=== PATIENT | female | born 1990 | race Asian ===

== ENCOUNTER 2016-11-25 06:35 | Inpatient (IN) | payer MEDICAID ==
[2016-11-25] MEDS ORDERED: Sodium Chloride 0.9% 10 ML Syringe FLUSH PRN (07:27)
[2016-11-25] MEDS ORDERED: Nalbuphine 20 MG/1 ML Amp IVPUSH PRN (07:27)
[2016-11-25] MEDS ORDERED: Lidocaine 1% 50 ML MDV INJECT ONE (07:27)
[2016-11-25] MEDS ORDERED: Ondansetron 4 MG/2 ML SDV IVPUSH PRN (07:27)
[2016-11-25] MEDS ORDERED: Oxytocin/Lactated Ringers 10 UNIT/1,000 ML BAG IV SCH (07:30)
[2016-11-25] MEDS ORDERED: Lactated Ringers 1,000 ML IV SCH (07:30)
--- NOTE | 2016-11-25 07:58 | PCM.LDHP ---
L&D History of Present Illness - General Date of Service: 11/25/16 Admit Problem/Dx: Patient Status Order with Admit Dx/Problem 11/25/16 07:28 Patient Status [ADT] Routine Admission Diagnosis/Problem Admission Diagnosis/Problem Normal labor Source of Information: Patient History Limitations: Reports: No limitations - History of Present Illness Introduction:: 26 y/o BUBBA 12/06/2016 EGA 38w3d presented to L&D in labor with bloody show. No H/O placenta previa by ultrasound. Ultrasound requested to make sure no abruptio. GBS negative. H/O hypothyroidism Taking levothyroxine 88 mcg daily. Plan labor and delivery Improves with: Reports: None Worsens with: Reports: None Associated Symptoms: Reports: N - Related Data Allergies/Adverse Reactions: Allergies Allergy/AdvReac Type Severity Reaction Status Date / Time No Known Allergies Allergy Verified 11/25/16 07:56 Past Medical History : 5 Para: 2 (2021) LMP (Approximate): H&P Review of Systems - Review of Systems: Review Of Systems: See Below General: Reports: no symptoms HEENT: Reports: no symptoms Pulmonary: Reports: No Symptoms Cardiovascular: Reports: no symptoms Gastrointestinal: Reports: No symptoms Genitourinary: Reports: no symptoms Musculoskeletal: Reports: no symptoms Skin: Reports: no symptoms Psychiatric: Reports: no symptoms Neurological: Reports: No Symptoms Hematologic/Lymphatic: Reports: no symptoms Immunologic: Reports: no symptoms L&D Exam - Exam Exam: See Below - OB Specific Fundal Height in cm: 36 Contraction Duration (sec): 60 Contraction Frequency (min): 3 Contraction Intensity: Moderate movement: active heart tones: present heart tones per min: 135 Heart Rate (FHR) Variability: Moderate (6-25 bmp) Presentation: Vertex Estimated Weight: 6.5 - Alcaraz Score Alcaraz Score Cervix Position: Posterior Alcaraz Score Consistency: Soft Alcaraz Score Effacement: >80% Alcaraz Score Dilation: 3-4 cm Alcaraz Score 's Station: -1 ,0 Alcaraz Score Total: 9 - Exam General: alert, oriented HEENT: Mucosa moist & pink Neck: supple, trachea midline Lungs: Clear to auscultation, Normal respiratory effort Cardiovascular: regular rate, regular rhythm Abdomen: normal bowel sounds, soft Genitourinary: Normal external exam Extremities: normal inspection Skin: warm, dry, intact Psychiatric: alert, normal affect, normal mood - Patient Data Lab Results last 24 hrs: Laboratory Results - last 24 hr 11/25/16 Range/Units 07:25 WBC 12.21 H (3.98-10.04) K/mm3 RBC 3.94 L (3.98-5.22) M/mm3 Hgb 12.6 (11.2-15.7) gm/L Hct 37.7 (34.1-44.9) % MCV 95.7 H (79.4-94.8) fl MCH 32.0 (25.6-32.2) pg MCHC 33.4 (32.2-35.5) g/dl RDW Std Deviation 44.7 (36.4-46.3) fL Plt Count 154 L (182-369) K/mm3 MPV 10.9 (9.4-12.3) fl Result Diagrams: 11/25/16 07:25 - Problem List (1) 38 weeks gestation of SNOMED Code(s): 48193539 ICD Code: Z3A.38 - 38 WEEKS GESTATION OF Status: Acute Current Visit: Yes Problem List Initiated/Reviewed/Updated: No Orders Last 24hrs: Active Orders 24 hr Category Date Time Status Patient Status [ADT] Routine ADT 11/25/16 07:28 Active Activity as Tolerated [RC] PFP Care 11/25/16 07:28 Active Communication Order [RC] ASDIRECTED Care 11/25/16 07:28 Active Heart Tones [RC] ASDIRECTED Care 11/25/16 07:28 Active Notify Provider [RC] PFP Care 11/25/16 07:28 Active Notify Provider [RC] PRN Care 11/25/16 07:28 Active Peripheral IV Care [RC] . DIRECTED Care 11/25/16 07:28 Active Vital Signs [RC] PER UNIT ROUTINE Care 11/25/16 07:28 Active Clear Liquid Diet [DIET] Diet 11/25/16 Breakfast Active OB Ltd 1 or More Fetus [US] Routine Exams 11/25/16 06:59 Ordered TYPE AND SCREEN [BBK] Stat Lab 11/25/16 07:25 Received Lactated Ringers [Ringers, Lactated] 1,000 ml Med 11/25/16 07:30 Ordered IV ASDIRECTED Lidocaine 1% [Xylocaine 1%] Med 11/25/16 07:27 Once 20 ml INJECT ONETIME ONE Nalbuphine [Nubain] Med 11/25/16 07:27 Ordered 10 mg IVPUSH Q2H PRN Ondansetron [Zofran] Med 11/25/16 07:27 Ordered 4 mg IVPUSH Q4H PRN Oxytocin/Lactated Ringers [Pitocin in LR 10 Units/1,000 Med 11/25/16 07:30 Ordered ML] 10 unit in 1,000 ml IV ASDIRECTED Sodium Chloride 0.9% [Saline Flush] Med 11/25/16 07:27 Ordered 10 ml FLUSH ASDIRECTED PRN Electronic Heart Tones Ext w TOCO [WOMSER] Ot 11/25/16 07:28 Ordered Routine Electronic Heart Tones Internal [WOMSER] Per Unit Ot 11/25/16 07:28 Ordered Routine Peripheral IV Insertion Adult [OM.PC] Routine Oth 11/25/16 07:28 Ordered Resuscitation Status Routine Resus Stat 11/25/16 07:27 Ordered Medication Orders Lactated Ringer's (Ringers, Lactated) 1,000 mls @ 100 mls/hr IV ASDIRECTED PADMINI Oxytocin/Lactated Ringer's (Pitocin In Lr 10 Units/1,000 Ml) 10 unit in 1,000 mls @ 500 mls/hr IV ASDIRECTED PADMINI Lidocaine HCl (Xylocaine 1%) 20 ml INJECT ONETIME ONE Stop: 11/25/16 07:28 Nalbuphine HCl (Nubain) 10 mg IVPUSH Q2H PRN PRN Reason: Pain (moderate 4-6) Ondansetron HCl (Zofran) 4 mg IVPUSH Q4H PRN PRN Reason: Nausea/Vomiting Sodium Chloride (Saline Flush) 10 ml FLUSH ASDIRECTED PRN PRN Reason: Keep Vein Open Assessment/Plan Comment:: Plan Labor and delivery
--- NOTE | 2016-11-25 08:48 | US ---
Limited obstetrical ultrasound: Multiple real-time images were obtained transabdominally. Comparison: Previous study of 07/18/16 is available. Dates: LMP: ? Current ultrasound: BUBBA 12/09/16, gestational age 38 weeks 0 days Earlier ultrasound (07/18/16): BUBBA 12/08/16, gestational age 38 weeks 1 day presentation: Cephalic Placenta: Anterior with no findings of placenta previa. No abruption is identified. Amniotic fluid: BOOGIE 10.71 cm Measurements: BPD: 9.57 cm - 39 weeks 1 day Head circumference: 34.00 cm - 39 weeks 1 day Abdominal circumference: 33.07 cm - 37 weeks 0 days Femur length: 7.13 cm - 36 weeks 4 days Estimated weight: 3183 g (7 lbs. 0 oz.), estimated weight at the 45th percentile for age by current ultrasound Heart rate: 151 BPM Growth curves: Various growth parameters are around the mean percentile. Growth is appropriate from previous exam. Impression: 1. Single intrauterine fetus currently cephalic in presentation. Dates as noted above. 2. No findings of placenta previa or abruption. 3. No etiology is seen to explain the patient's bleeding. Diagnostic code #1
--- NOTE | 2016-11-25 08:52 | PCM.SN ---
- Free Text/Narrative Note: Cervix 7 cm, 100%, midposition, soft, [id number] Cat I FHR amniotomy performed 0850 clear fluid with increased bloody show. USG did not reveal any abruption.
--- NOTE | 2016-11-25 09:43 | PCM.DEL ---
L & D Note - General Info Date of Service: 11/25/16 Mother's Due Date: 11/21/16 - Delivery Note Labor: spontaneous, augmented by ARM Delivery Outcome: Livebirth [facility] [address]/25[facility]16 [place] nuchal cord x1 tight ) Delivery Method: Spontaneous Vaginal Delivery (927) Presentation: Right Occiput Anterior ([place]) Nuchal cord: present (x1 tight) Prep: povidone-iodine (betadine Anesthesia Type: None Episiotomy Type: None Laceration: none Placenta: intact (marginal sinus abruption 10% with about 400 ml clot), spontaneous Cord: 3 vessels Estimated blood loss: 500 Resuscitation needed: No [place]: suctioned, bulb syringe, stimulated, warmed, blanket used, warmer used Provider: Ovi Matos Score 1 min: 9 Score 5 min: 9 - Patient Data Vitals - most recent: Last Vital Signs Temp 98.5 F 11/25/16 07:45 Pulse 68 11/25/16 07:45 Resp 18 11/25/16 07:45 BP 107/69 11/25/16 07:45 Pulse Ox 100 11/25/16 07:45 Weight - most recent: 156 lb Lab Results last 24 hrs: Laboratory Results - last 24 hr 11/25/16 11/25/16 Range/Units 07:25 07:25 WBC 12.21 H (3.98-10.04) K/mm3 RBC 3.94 L (3.98-5.22) M/mm3 Hgb 12.6 (11.2-15.7) gm/L Hct 37.7 (34.1-44.9) % MCV 95.7 H (79.4-94.8) fl MCH 32.0 (25.6-32.2) pg MCHC 33.4 (32.2-35.5) g/dl RDW Std Deviation 44.7 (36.4-46.3) fL Plt Count 154 L (182-369) K/mm3 MPV 10.9 (9.4-12.3) fl Blood Type A POSITIVE Gel Antibody Screen Negative Med Orders - Current: Current Medications Lactated Ringer's (Ringers, Lactated) 1,000 mls @ 100 mls/hr IV ASDIRECTED PADMINI Oxytocin/Lactated Ringer's (Pitocin In Lr 10 Units/1,000 Ml) 10 unit in 1,000 mls @ 500 mls/hr IV ASDIRECTED PADMINI Nalbuphine HCl (Nubain) 10 mg IVPUSH Q2H PRN PRN Reason: Pain (moderate 4-6) Ondansetron HCl (Zofran) 4 mg IVPUSH Q4H PRN PRN Reason: Nausea/Vomiting Sodium Chloride (Saline Flush) 10 ml FLUSH ASDIRECTED PRN PRN Reason: Keep Vein Open Discontinued Medications Lidocaine HCl (Xylocaine 1%) 20 ml INJECT ONETIME ONE Stop: 11/25/16 07:28 - Problem List & Annotations (1) 38 weeks gestation of SNOMED Code(s): 65748563 Code(s): Z3A.38 - 38 WEEKS GESTATION OF Status: Acute Current Visit: Yes (2) Nuchal cord SNOMED Code(s): 398224773 Code(s): O69.82X0 - LABOR AND DEL COMP BY OTH CORD ENTANGLE, W/O COMPRSN, UNSP Status: Acute Current Visit: Yes Qualifiers: Fetus number: single or unspecified fetus Qualified Code(s): O69.82X0 - Labor and delivery complicated by other cord entanglement, without compression, not applicable or unspecified (3) Placenta abruption, delivered, current hospitalization SNOMED Code(s): 127980389, 606362884 Code(s): O45.90 - PREMATURE SEPARATION OF PLACENTA, UNSP, UNSP TRIMESTER Status: Acute Current Visit: Yes - Problem List Review Problem List Initiated/Reviewed/Updated: No - My Orders Last 24 Hours: My Active Orders 11/25/16 07:27 Nalbuphine [Nubain] 10 mg IVPUSH Q2H PRN Ondansetron [Zofran] 4 mg IVPUSH Q4H PRN Sodium Chloride 0.9% [Saline Flush] 10 ml FLUSH ASDIRECTED PRN Resuscitation Status Routine 11/25/16 07:28 Patient Status [ADT] Routine Activity as Tolerated [RC] PFP Communication Order [RC] ASDIRECTED Notify Provider [RC] PFP Notify Provider [RC] PRN Peripheral IV Care [RC] . DIRECTED Vital Signs [RC] PER UNIT ROUTINE Electronic Heart Tones Ext w TOCO [WOMSER] Routine Electronic Heart Tones Internal [WOMSER] Per Unit Routine Peripheral IV Insertion Adult [OM.PC] Routine 11/25/16 07:30 Lactated Ringers [Ringers, Lactated] 1,000 ml IV ASDIRECTED Oxytocin/Lactated Ringers [Pitocin in LR 10 Units/1,000 ML] 10 unit in 1,000 ml IV ASDIRECTED 11/25/16 Breakfast Clear Liquid Diet [DIET] - Plan Plan:: Plan Labor and delivery
[2016-11-25] MEDS ORDERED: Acetaminophen 325 MG Tab PO PRN (10:08)
[2016-11-25] MEDS ORDERED: Ibuprofen 600 MG Tab PO PRN (10:08)
[2016-11-25] MEDS ORDERED: Simethicone 80 MG Tab.Chew PO PRN (10:08)
[2016-11-25] MEDS ORDERED: Docusate Sodium 100 MG Cap PO PRN (10:08)
[2016-11-26] MEDS: Levothyroxine 88 MCG Tab PO SCH (06:17)
--- NOTE | 2016-11-26 10:02 | PCM.SN ---
- Free Text/Narrative Note: PPD#1 Afebrile, no heavy vaginal bleeding, no leg cramps, uterus involuting normally.
[2016-11-26] MEDS: Ferrous Sulfate 325 MG Tab PO SCH (13:09)
[2016-11-26] MEDS: Prenatal Multivitamin with Calcium/Folic Acid/Iron Tab PO SCH (13:09)
--- NOTE | 2016-11-27 08:14 | PCM.DCSUM1 ---
Discharge Summary - Hospital Course Free Text/Narrative:: [facility] LIVE L/D Delivery Note Patient Name: FARAZ PALENCIA Date of : 86 Patient Status: Inpatient Attending Provider: Ovi Matos Date: 11/25/16 09:35 Initialization Date: 11/25/16 09:35 L & D Note - General Info Date of Service: 11/25/16 Mother's Due Date: 11/21/16 - Delivery Note Labor: spontaneous, augmented by ARM Delivery Outcome: Livebirth (92611/25/16 [place] nuchal cord x1 tight ) Delivery Method: Spontaneous Vaginal Delivery (927) Presentation: Right Occiput Anterior ([place]) Nuchal cord: present (x1 tight) Prep: povidone-iodine (betadine Anesthesia Type: None Episiotomy Type: None Laceration: none Placenta: intact (marginal sinus abruption 10% with about 400 ml clot), spontaneous Cord: 3 vessels Estimated blood loss: 500 Resuscitation needed: No [place]: suctioned, bulb syringe, stimulated, warmed, blanket used, warmer used Provider: Ovi Matos Score 1 min: 9 Score 5 min: 9 - Patient Data Vitals - most recent: Last Vital Signs Temp 98.5 F 11/25/16 07:45 Pulse 68 11/25/16 07:45 Resp 18 11/25/16 07:45 BP 107/69 11/25/16 07:45 Pulse Ox 100 11/25/16 07:45 Weight - most recent: 156 lb Lab Results last 24 hrs: Laboratory Results - last 24 hr 11/25/16 11/25/16 Range/Units 07:25 07:25 WBC 12.21 H (3.98-10.04) K/mm3 RBC 3.94 L (3.98-5.22) M/mm3 Hgb 12.6 (11.2-15.7) gm/L Hct 37.7 (34.1-44.9) % MCV 95.7 H (79.4-94.8) fl MCH 32.0 (25.6-32.2) pg MCHC 33.4 (32.2-35.5) g/dl RDW Std Deviation 44.7 (36.4-46.3) fL Plt Count 154 L (182-369) K/mm3 MPV 10.9 (9.4-12.3) fl Blood Type A POSITIVE Gel Antibody Screen Negative Med Orders - Current: Current Medications Lactated Ringer's (Ringers, Lactated) 1,000 mls @ 100 mls/hr IV ASDIRECTED PADMINI Oxytocin/Lactated Ringer's (Pitocin In Lr 10 Units/1,000 Ml) 10 unit in 1,000 mls @ 500 mls/hr IV ASDIRECTED PADMINI Nalbuphine HCl (Nubain) 10 mg IVPUSH Q2H PRN PRN Reason: Pain (moderate 4-6) Ondansetron HCl (Zofran) 4 mg IVPUSH Q4H PRN PRN Reason: Nausea/Vomiting Sodium Chloride (Saline Flush) 10 ml FLUSH ASDIRECTED PRN PRN Reason: Keep Vein Open Discontinued Medications Lidocaine HCl (Xylocaine 1%) 20 ml INJECT ONETIME ONE Stop: 11/25/16 07:28 - Problem List & Annotations (1) 38 weeks gestation of SNOMED Code(s): 29299870 Code(s): Z3A.38 - 38 WEEKS GESTATION OF Status: Acute Current Visit: Yes (2) Nuchal cord SNOMED Code(s): 494864259 Code(s): O69.82X0 - LABOR AND DEL COMP BY OTH CORD ENTANGLE, W/O COMPRSN, UNSP Status: Acute Current Visit: Yes Qualifiers: Fetus number: single or unspecified fetus Qualified Code(s): O69.82X0 - Labor and delivery complicated by other cord entanglement, without compression, not applicable or unspecified (3) Placenta abruption, delivered, current hospitalization SNOMED Code(s): 770879215, 255028734 Code(s): O45.90 - PREMATURE SEPARATION OF PLACENTA, UNSP, UNSP TRIMESTER Status: Acute Current Visit: Yes - Problem List Review Problem List Initiated/Reviewed/Updated: No - My Orders Last 24 Hours: My Active Orders 11/25/16 07:27 Nalbuphine [Nubain] 10 mg IVPUSH Q2H PRN Ondansetron [Zofran] 4 mg IVPUSH Q4H PRN Sodium Chloride 0.9% [Saline Flush] 10 ml FLUSH ASDIRECTED PRN Resuscitation Status Routine 11/25/16 07:28 Patient Status [ADT] Routine Activity as Tolerated [RC] PFP Communication Order [RC] ASDIRECTED Notify Provider [RC] PFP Notify Provider [RC] PRN Peripheral IV Care [RC] . DIRECTED Vital Signs [RC] PER UNIT ROUTINE Electronic Heart Tones Ext w TOCO [WOMSER] Routine Electronic Heart Tones Internal [WOMSER] Per Unit Routine Peripheral IV Insertion Adult [OM.PC] Routine 11/25/16 07:30 Lactated Ringers [Ringers, Lactated] 1,000 ml IV ASDIRECTED Oxytocin/Lactated Ringers [Pitocin in LR 10 Units/1,000 ML] 10 unit in 1,000 ml IV ASDIRECTED 11/25/16 Breakfast Clear Liquid Diet [DIET] - Plan Plan:: Plan Labor and delivery HPI Initial Comments: [facility] LIVE L/D Delivery Note Patient Name: FARAZ PALENCIA Date of : 86 Patient Status: Inpatient Attending Provider: Ovi Matos Date: 11/25/16 09:35 Initialization Date: 11/25/16 09:35 L & D Note - General Info Date of Service: 11/25/16 Mother's Due Date: 11/21/16 - Delivery Note Labor: spontaneous, augmented by ARM Delivery Outcome: Livebirth ([facility] [address]11/25/16 [place] nuchal cord x1 tight ) Infant Delivery Method: Spontaneous Vaginal Delivery (927) Presentation: Right Occiput Anterior ([place]) Nuchal cord: present (x1 tight) Prep: povidone-iodine (betadine Anesthesia Type: None Episiotomy Type: None Laceration: none Placenta: intact (marginal sinus abruption 10% with about 400 ml clot), spontaneous Cord: 3 vessels Estimated blood loss: 500 Resuscitation needed: No [place]: suctioned, bulb syringe, stimulated, warmed, blanket used, warmer used Provider: Ovi Matos Score 1 min: 9 Score 5 min: 9 - Patient Data Vitals - most recent: Last Vital Signs Temp 98.5 F 11/25/16 07:45 Pulse 68 11/25/16 07:45 Resp 18 11/25/16 07:45 BP 107/69 11/25/16 07:45 Pulse Ox 100 11/25/16 07:45 Weight - most recent: 156 lb Lab Results last 24 hrs: Laboratory Results - last 24 hr 11/25/16 11/25/16 Range/Units 07:25 07:25 WBC 12.21 H (3.98-10.04) K/mm3 RBC 3.94 L (3.98-5.22) M/mm3 Hgb 12.6 (11.2-15.7) gm/L Hct 37.7 (34.1-44.9) % MCV 95.7 H (79.4-94.8) fl MCH 32.0 (25.6-32.2) pg MCHC 33.4 (32.2-35.5) g/dl RDW Std Deviation 44.7 (36.4-46.3) fL Plt Count 154 L (182-369) K/mm3 MPV 10.9 (9.4-12.3) fl Blood Type A POSITIVE Gel Antibody Screen Negative Med Orders - Current: Current Medications Lactated Ringer's (Ringers, Lactated) 1,000 mls @ 100 mls/hr IV ASDIRECTED PADMINI Oxytocin/Lactated Ringer's (Pitocin In Lr 10 Units/1,000 Ml) 10 unit in 1,000 mls @ 500 mls/hr IV ASDIRECTED PADMINI Nalbuphine HCl (Nubain) 10 mg IVPUSH Q2H PRN PRN Reason: Pain (moderate 4-6) Ondansetron HCl (Zofran) 4 mg IVPUSH Q4H PRN PRN Reason: Nausea/Vomiting Sodium Chloride (Saline Flush) 10 ml FLUSH ASDIRECTED PRN PRN Reason: Keep Vein Open Discontinued Medications Lidocaine HCl (Xylocaine 1%) 20 ml INJECT ONETIME ONE Stop: 11/25/16 07:28 - Problem List & Annotations (1) 38 weeks gestation of SNOMED Code(s): 11775025 Code(s): Z3A.38 - 38 WEEKS GESTATION OF Status: Acute Current Visit: Yes (2) Nuchal cord SNOMED Code(s): 169760666 Code(s): O69.82X0 - LABOR AND DEL COMP BY OTH CORD ENTANGLE, W/O COMPRSN, UNSP Status: Acute Current Visit: Yes Qualifiers: Fetus number: single or unspecified fetus Qualified Code(s): O69.82X0 - Labor and delivery complicated by other cord entanglement, without compression, not applicable or unspecified (3) Placenta abruption, delivered, current hospitalization SNOMED Code(s): 166904553, 420035577 Code(s): O45.90 - PREMATURE SEPARATION OF PL[place]ENTA, UNSP, UNSP TRIMESTER Status: Acute Current Visit: Yes - Problem List Review Problem List Initiated/Reviewed/Updated: No - My Orders Last 24 Hours: My Active Orders 11/25/16 07:27 Nalbuphine [Nubain] 10 mg IVPUSH Q2H PRN Ondansetron [Zofran] 4 mg IVPUSH Q4H PRN Sodium Chloride 0.9% [Saline Flush] 10 ml FLUSH ASDIRECTED PRN Resuscitation Status Routine 11/25/16 07:28 Patient Status [ADT] Routine Activity as Tolerated [RC] PFP Communication Order [RC] ASDIRECTED Notify Provider [RC] PFP Notify Provider [RC] PRN Peripheral IV Care [RC] . DIRECTED Vital Signs [RC] PER UNIT ROUTINE Electronic Heart Tones Ext w TOCO [WOMSER] Routine Electronic Heart Tones Internal [WOMSER] Per Unit Routine Peripheral IV Insertion Adult [OM.PC] Routine 11/25/16 07:30 Lactated Ringers [Ringers, Lactated] 1,000 ml IV ASDIRECTED Oxytocin/Lactated Ringers [Pitocin in LR 10 Units/1,000 ML] 10 unit in 1,000 ml IV ASDIRECTED 11/25/16 Breakfast Clear Liquid Diet [DIET] - Plan Plan:: Plan Labor and delivery Brief History: [facility] LIVE . L/D Delivery Note. [facility]: [id number]. Date of : 86Patient Status: Inpatient. Attending Provider: Ovi Matos Number: [id number]. Date: 11/25/16 09:35Initialization Date: 11/25/16 09:35. L & D Note. - General Info. Date of Service: 11/25/16. Mother's Due Date: . - Delivery Note. Labor: spontaneous, augmented by ARM. Delivery Outcome: Livebirth ([facility] [address]11/25/16 [place] nuchal cord x1 tight). Infant Delivery Method: Spontaneous Vaginal Delivery (927). Presentation: Right Occiput Anterior ([place]). Nuchal cord: present (x1 tight). Prep: povidone- iodine (betadine. Anesthesia Type: None. Episiotomy Type: None. Laceration: none. Placenta: intact (marginal sinus abruption 10% with about 400 ml clot), spontaneous. Cord: 3 vessels. Estimated blood loss: 500. Resuscitation needed : No. : suctioned, bulb syringe, stimulated, warmed, blanket used, warmer used. Provider: Ovi Matos. Score 1 min: 9. Score 5 min: 9. - Patient Data. Vitals - most recent: Last Vital Signs. Temp 98.5 F 11/25/16 07:45. Pulse 68 11/25/16 07:45. Resp 18 07:45. BP 107/69 11/25/16 07:45. Pulse Ox 100 11/25/16 07:45. Weight - most recent: 156 lb. Lab Results last 24 hrs: Laboratory Results - last 24 hr. 11/26/1703Range/Units. 07:2507:25. WBC 12.21 H (3.98-10.04) K/ mm3. RBC 3.94 L (3.98-5.22) M/mm3. Hgb 12.6 (11.2-15.7) gm/L. Hct 37.7 ( 34.1-44.9) %. MCV 95.7 H (79.4-94.8) fl. MCH 32.0 (25.6-32.2) pg. MCHC 33.4 (32.2-35.5) g/dl. RDW Std Deviation 44.7 (36.4-46.3) fL. Plt Count 154 L (182-369) K/mm3. MPV 10.9 (9.4-12.3) fl. Blood Type A POSITIVE. Gel Antibody Screen Negative. Med Orders - Current: Current Medications. Lactated Ringer's (Ringers, Lactated) 1,000 mls @ 100 mls/hr IV ASDIRECTED PADMINI. Oxytocin/Lactated Ringer's (Pitocin In Lr 10 Units/1,000 Ml) 10 unit in 1 ,000 mls @ 500 mls/hr IV ASDIRECTED PADMINI. Nalbuphine HCl (Nubain) 10 mg IVPUSH Q2H PRN. PRN Reason: Pain (moderate 4-6). Ondansetron HCl (Zofran) 4 mg IVPUSH Q4H PRN. PRN Reason: Nausea/Vomiting. Sodium Chloride (Saline Flush) 10 ml FLUSH ASDIRECTED PRN. PRN Reason: Keep Vein Open. Discontinued Medications. Lidocaine HCl (Xylocaine 1%) 20 ml INJECT ONETIME ONE. Stop: 07:28. - Problem List & Annotations. (1) 38 weeks gestation of . SNOMED Code(s): 59685770. Code(s): Z3A.38 - 38 WEEKS GESTATION OF Status: Acute Current Visit: Yes. (2) Nuchal cord. SNOMED Code(s ): 540021586. Code(s): O69.82X0 - LABOR AND DEL COMP BY OTH CORD ENTANGLE, W/O COMPRSN, UNSP Status: Acute Current Visit: Yes. Qualifiers: Fetus number: single or unspecified fetus Qualified Code(s): O69.82X0 - Labor and delivery complicated by other cord entanglement, without compression, not applicable or unspecified. (3) Placenta abruption, delivered, current hospitalization. SNOMED Code(s): 711950271, 419266967. Code(s): O45.90 - PREMATURE SEPARATION OF PLACENTA, UNSP, UNSP TRIMESTER Status: Acute Current Visit: Yes. - Problem List Review. Problem List Initiated/Reviewed/Updated: No. - My Orders. Last 24 Hours: My Active Orders. 11/25/16 07:27. Nalbuphine [Nubain ] 10 mg IVPUSH Q2H PRN. Ondansetron [Zofran] 4 mg IVPUSH Q4H PRN. Sodium Chloride 0.9% [Saline Flush] 10 ml FLUSH ASDIRECTED PRN. Resuscitation Status Routine. 11/25/16 07:28. Patient Status [ADT] Routine. Activity as Tolerated [RC] PFP. Communication Order [RC] ASDIRECTED. Notify Provider [RC] PFP. Notify Provider [RC] PRN. Peripheral IV Care [RC] . DIRECTED. Vital Signs [RC] PER UNIT ROUTINE. Electronic Heart Tones Ext w TOCO [WOMSER] Routine. Electronic Heart Tones Internal [WOMSER] Per Unit Routine. Peripheral IV Insertion Adult [OM.PC] Routine. 11/25/16 07:30. Lactated Ringers [Ringers, Lactated] 1,000 ml IV ASDIRECTED. Oxytocin/Lactated Ringers [ Pitocin in LR 10 Units/1,000 ML] 10 unit in 1,000 ml IV ASDIRECTED. 11/25/16 Breakfast. Clear Liquid Diet [DIET]. - Plan. Plan:: Plan Labor and delivery - Discharge Data Discharge Date: 11/27/16 Discharge Disposition: Home, Self-Care 01 Condition: Good - Discharge Diagnosis/Problem(s) (1) 38 weeks gestation of SNOMED Code(s): 84458554 ICD Code: Z3A.38 - 38 WEEKS GESTATION OF Status: Acute Current Visit: Yes (2) Nuchal cord SNOMED Code(s): 939451978 ICD Code: O69.82X0 - LABOR AND DEL COMP BY OTH CORD ENTANGLE, W/O COMPRSN, UNSP Status: Acute Current Visit: Yes Qualifiers: Fetus number: single or unspecified fetus Qualified Code(s): O69.82X0 - Labor and delivery complicated by other cord entanglement, without compression, not applicable or unspecified (3) Placenta abruption, delivered, current hospitalization SNOMED Code(s): 329340965, 680356624 ICD Code: O45.90 - PREMATURE SEPARATION OF [place], UNSP, UNSP TRIMESTER Status: Acute Current Visit: Yes - Patient Summary/Data Complications: none Consults: none Hospital Course: uneventful - Patient Instructions Diet: Heart Healthy Diet Activity: As Tolerated Driving: Do Not Drive (x48 hrs) Showering/Bathing: May Shower Notify Provider of: Fever, Increased Pain, Swelling and Redness, Drainage, Nausea and/or Vomiting - Discharge Plan Prescriptions/Med Rec: Ibuprofen [IJD: Ibuprofen] 600 mg PO Q6H PRN #50 tablet PRN Reason: Pain Home Medications: Home Meds Ferrous Sulfate [Iron] 325 mg PO DAILY 11/25/16 [History] Levothyroxine [Synthroid] 88 mcg PO ACBREAKFAST 11/25/16 [History] Pnv No.122/Iron/Folic Acid [ Multi Tablet] 1 each PO DAILY 11/25/16 [ History] Acetaminophen [Tylenol] 650 mg PO Q6H PRN #0 tablet 11/27/16 [Rx] Docusate Sodium [Colace] 100 mg PO BID PRN #0 cap 11/27/16 [Rx] Ibuprofen [IJD: Ibuprofen] 600 mg PO Q6H PRN #50 tablet 11/27/16 [Rx] Simethicone 80 mg PO Q4H PRN #0 tab.chew 11/27/16 [Rx] Referrals: Kari Wilhelm MD [Physician] - (6 weeks) - Discharge Summary/Plan Comment DC Time >30 min.: No - Patient Data Vitals - Most Recent: Last Vital Signs Temp 97.7 F 11/27/16 04:00 Pulse 76 11/27/16 05:40 Resp 15 11/27/16 04:00 BP 118/82 11/27/16 05:40 Pulse Ox 98 11/27/16 05:40 Weight - Most Recent: 156 lb Med Orders - Current: Current Medications Acetaminophen (Tylenol) 650 mg PO Q4H PRN PRN Reason: mild pain or fever Docusate Sodium (Colace) 100 mg PO BID PRN PRN Reason: Constipation Ferrous Sulfate (Ferrous Sulfate) 325 mg PO DAILY [facility] Last Admin: 11/26/16 13:09 Dose: Not Given Ibuprofen (Motrin) 600 mg PO Q4H PRN PRN Reason: Mild pain or fever Levothyroxine Sodium (Synthroid) 88 mcg PO ACBREAKFAST [facility] Last Admin: 11/26/16 06:17 Dose: 88 mcg Prenat Multivit/Clinical Laboratory Aides Teacher/Iron/Folic Ac ( Plus Iron) 1 each PO DAILY [facility] Last Admin: 11/26/16 13:09 Dose: Not Given Simethicone (Simethicone) 80 mg PO Q4H PRN PRN Reason: Gas Discontinued Medications Lactated Ringer's (Ringers, Lactated) 1,000 mls @ 100 mls/hr IV ASDIRECTED [facility] Last Admin: 11/25/16 07:00 Dose: 750 mls/hr Oxytocin/Lactated Ringer's (Pitocin In Lr 10 Units/1,000 Ml) 10 unit in 1,000 mls @ 500 mls/hr IV ASDIRECTED [facility] Last Admin: 11/25/16 09:27 Dose: 500 mls/hr Lidocaine HCl (Xylocaine 1%) 20 ml INJECT ONETIME ONE Stop: 11/25/16 07:28 Last Admin: 11/25/16 11:50 Dose: Not Given Nalbuphine HCl (Nubain) 10 mg IVPUSH Q2H PRN PRN Reason: Pain (moderate 4-6) Ondansetron HCl (Zofran) 4 mg IVPUSH Q4H PRN PRN Reason: Nausea/Vomiting Sodium Chloride (Saline Flush) 10 ml FLUSH ASDIRECTED PRN PRN Reason: Keep Vein Open *Q Meaningful Use (DIS) - VTE *Q VTE Criteria *Q: - Stroke *Q Stroke Criteria *Q: - AMI *Q AMI Criteria *Q:
[2016-11-27] MEDS: Prenatal Multivitamin with Calcium/Folic Acid/Iron Tab PO SCH (09:32)
[2016-11-27] MEDS: Levothyroxine 88 MCG Tab PO SCH (09:33)
[2016-11-27] MEDS: Ferrous Sulfate 325 MG Tab PO SCH (09:33)
[2016-11-27 11:46] VITALS: BP 118/66
== END 2016-11-27 09:46 | disposition home or self-care (01) | DRG 774 ==
LOC: JD.OBCHECK 06:35 → JD.OB 06:37 → JD.OBCHECK 07:28 → JD.OB 09:27 → OBSVTOIN 09:27
PROVIDERS: ADMIT Obstetrics & Gynecology; ATTEND Obstetrics & Gynecology
PROC: 10E0XZZ Delivery of Products of Conception, External Approach (ICD-10-PCS; principal; 2016-11-25)
PROC: 10907ZC Drainage of Amniotic Fluid, Therapeutic from Products of Conception, Via Natural or Artificial Opening (ICD-10-PCS; 2016-11-25)
DX: O45.93 Premature separation of placenta, unspecified, third trimester (principal); O99.284 Endocrine, nutritional and metabolic diseases complicating childbirth; E03.9 Hypothyroidism, unspecified; O69.81X0 Labor and delivery complicated by cord around neck, without compression, not applicable or unspecified; Z3A.38 38 weeks gestation of pregnancy; Z37.0 Single live birth; Z79.899 Other long term (current) drug therapy
CPT/HCPCS: 36415; 76815; 76815-26; 85025; 85027; 86850; 86900; 86901; A9270-GY; J2590; J7120

== ENCOUNTER 2018-05-10 13:43 | Emergency (ER) | payer SELFPAY | END 2018-05-10 14:00 | disposition left against medical advice (07) | LOC: JD.ED 13:43 | DX: Z53.21 Procedure and treatment not carried out due to patient leaving prior to being seen by health care provider (principal) ==